=== PATIENT | male | born 1960 | race Caucasian/White ===

== ENCOUNTER 2024-10-05 10:39 | Inpatient (IN) | payer MEDICAID, SELFPAY ==
[~2024-10-05] VITALS: Ht 175.3 cm; Wt 63.0 kg
[2024-10-05] MEDS: ONDANSETRON 4MG 2ML VIAL IV ONE (11:44)
[2024-10-05] MEDS: MORPHINE 4 MG/ML 1ML VIAL IV PRN ×2 (11:44→14:15)
[2024-10-05 11:45] LABS: HEMATOCRIT 35.6 % (42.0-52.0); HEMOGLOBIN 12.2 g/dl (13.5-17.5); MEAN CORPUSCULAR HEMOGLOBIN 29.7 pg (27.0-33.0); MEAN CORPUSCULAR HGB CONC 34.3 g/dl (32.0-36.5); MEAN CORPUSCULAR VOLUME 86.6 fl (80.0-96.0); PLATELET COUNT, AUTOMATED 411 10^3/uL (150-450); RED BLOOD COUNT 4.11 10^6/uL (4.30-6.10); WHITE BLOOD COUNT 10.4 10^3/uL (4.0-10.0)
[2024-10-05 12:13] LABS: BLOOD UREA NITROGEN 15 MG/DL (9-23); CALCIUM LEVEL 9.7 MG/DL (8.3-10.6); CARBON DIOXIDE LEVEL 32 MMOL/L (20-31); CHLORIDE LEVEL 98 MMOL/L (98-107); GLOMERULAR FILTRATION RATE > 60.0 (>49); GLUCOSE, FASTING 233 MG/DL (74-106); POTASSIUM SERUM 4.3 MMOL/L (3.5-5.1); SODIUM LEVEL 136 MMOL/L (136-145)
[2024-10-05] MEDS ORDERED: MAALOX 30 ML SUSP *UDC PO PRN (13:50)
[2024-10-05] MEDS ORDERED: MOM 30ML SUSPENSION UDC PO PRN (13:50)
[2024-10-05] MEDS ORDERED: MORPHINE 2 MG/ML 1ML VIAL IV PRN (13:55)
[2024-10-05] MEDS ORDERED: HOME MED LIST COMPLETE! XX SCH (14:20)
[2024-10-05 14:46] LABS: HEMOGLOBIN A1c 7.2 % (4.0-6.0)
[2024-10-05 15:30] VITALS: BP 162/71; TEMP 98.6; O2SAT 99
[2024-10-05] MEDS: HYDROMORPHONE HCL 0.5 MG/ 0.5 ML SYRINGE IV PRN (16:46)
[2024-10-05 20:00] VITALS: BP 160/76; TEMP 98.1; O2SAT 97
[2024-10-06] VITALS (8 sets, daily range): BP systolic 131–160; BP diastolic 62–77; TEMP 97.5–98.1; O2SAT 93–97
[2024-10-06] MEDS ORDERED: DEXTROSE 50% 50ML SYRINGE IV PRN (07:10)
[2024-10-06] MEDS ORDERED: GLUCOSE 4 GM CHEW PO PRN (07:10)
[2024-10-06] MEDS ORDERED: GLUCAGON INJ 1MG VIAL SC PRN (07:10)
[2024-10-06 07:43] LABS: HEMATOCRIT 32.9 % (42.0-52.0); HEMOGLOBIN 11.3 g/dl (13.5-17.5); MEAN CORPUSCULAR HEMOGLOBIN 29.7 pg (27.0-33.0); MEAN CORPUSCULAR HGB CONC 34.3 g/dl (32.0-36.5); MEAN CORPUSCULAR VOLUME 86.6 fl (80.0-96.0); PLATELET COUNT, AUTOMATED 337 10^3/uL (150-450); WHITE BLOOD COUNT 8.4 10^3/uL (4.0-10.0)
[2024-10-06] MEDS ORDERED: ROCURONIUM BROMIDE 50MG/5ML VIAL As Ordered ONE (07:47)
[2024-10-06] MEDS ORDERED: propofoL 200 MG/20 ML VIAL As Ordered ONE (07:47)
[2024-10-06] MEDS ORDERED: LIDOCAINE 2% 100MG/5ML SDV (FOR ANES.) As Ordered ONE (07:49)
[2024-10-06 08:17] LABS: BLOOD UREA NITROGEN 14 MG/DL (9-23); CALCIUM LEVEL 9.4 MG/DL (8.3-10.6); CARBON DIOXIDE LEVEL 31 MMOL/L (20-31); CHLORIDE LEVEL 99 MMOL/L (98-107); CREATININE FOR GFR 0.66 MG/DL (0.70-1.30); GLOMERULAR FILTRATION RATE > 60.0 (>49); GLUCOSE, FASTING 156 MG/DL (74-106); POTASSIUM SERUM 4.5 MMOL/L (3.5-5.1); SODIUM LEVEL 136 MMOL/L (136-145)
[2024-10-06] MEDS ORDERED: fentaNYL 100 MCG/2 ML INJECTION IV PRN (08:25)
[2024-10-06] MEDS ORDERED: MEPERIDINE 25 MG/ML 1ML VIAL IV PRN (08:25)
[2024-10-06] MEDS ORDERED: METOCLOPRAMIDE INJ 10MG/2ML VIAL IV PRN (08:25)
[2024-10-06] MEDS ORDERED: HYDROMORPHONE HCL 0.5 MG/ 0.5 ML SYRINGE IV PRN (08:25)
[2024-10-06] MEDS: ALBUTEROL SULFATE 2.5MG/0.5ML INH NEB SOLN INH ONE (08:25)
[2024-10-06] MEDS ORDERED: oxyCODONE 5MG TAB PO PRN (08:25)
[2024-10-06] MEDS ORDERED: ONDANSETRON 4MG 2ML VIAL IV PRN (08:25)
[2024-10-06] MEDS: ROPIvacaine 0.5% 30ML VIAL PN ONE (08:52)
[2024-10-06] MEDS: LIDOCAINE 1% SDV 5ML VIAL PN ONE (08:52)
[2024-10-06] MEDS: fentaNYL 100 MCG/2 ML INJECTION IV PRN (08:52)
[2024-10-06] MEDS: MIDAZOLAM INJ 2MG/2ML VIAL IV PRN (08:52)
[2024-10-06 09:35] LABS: CHOLESTEROL LEVEL 205 MG/DL (<200); CHOLESTEROL RISK RATIO 3.28 (<5); HDL CHOLESTEROL 62.4 MG/DL (>40); LDL CHOLESTEROL 126.2 MG/DL (<100); NON-HDL-C 142.6 MG/DL; TRIGLYCERIDES LEVEL 82 MG/DL (<150)
[2024-10-06] MEDS: ceFAZolin 1GM VIAL As Ordered ONE (09:40)
[2024-10-06] MEDS ORDERED: ONDANSETRON 4MG 2ML VIAL As Ordered ONE (10:04)
[2024-10-06] MEDS ORDERED: KETOROLAC 60MG 2ML VIAL As Ordered ONE (10:46)
[2024-10-06] MEDS: INSULIN LISPRO (NovoLOG) PER UNIT SC SCH ×2 (17:28→20:52)
[2024-10-06] MEDS: ceFAZolin SOD 2 GM in IV 1 EA IV SCH (17:28)
[2024-10-06] MEDS: HumuLIN R (REGULAR) INSULIN (NovoLIN R) **100U/ML** PER UNIT IV STA (17:30)
[2024-10-06] MEDS ORDERED: ATORVASTATIN 20 MG TAB PO SCH (21:00)
[2024-10-07 00:12] VITALS: BP 152/81; TEMP 97.5; O2SAT 97
[2024-10-07 04:15] VITALS: BP 156/82; TEMP 97.5; O2SAT 95
[2024-10-07] MEDS: ACETAMINOPHEN 325 MG TAB PO PRN (05:33)
[2024-10-07 06:56] LABS: BASO % 0.1 % (0.0-1.0); EOS % 0.1 % (0.0-3.0); HEMOGLOBIN 10.3 g/dl (13.5-17.5); LYMPH # 0.9 10^3/uL (1.5-5.0); LYMPH % 6.7 % (24.0-44.0); MEAN CORPUSCULAR HEMOGLOBIN 29.6 pg (27.0-33.0); MEAN CORPUSCULAR HGB CONC 34.3 g/dl (32.0-36.5); MEAN CORPUSCULAR VOLUME 86.2 fl (80.0-96.0); NEUTROPHILS # 11.6 10^3/uL (1.5-8.5); NEUTROPHILS % 85.5 % (36.0-66.0); PLATELET COUNT, AUTOMATED 339 10^3/uL (150-450); RED BLOOD COUNT 3.48 10^6/uL (4.30-6.10); WHITE BLOOD COUNT 13.6 10^3/uL (4.0-10.0)
[2024-10-07 07:30] VITALS: BP 157/76; TEMP 97.7; O2SAT 99
[2024-10-07 07:34] LABS: ALBUMIN 2.7 G/DL (3.2-5.2); ALKALINE PHOSPHATASE 96 U/L (40-129); ALT/SGPT 11 U/L (7.0-40); AST/SGOT 11 U/L (<34); BILIRUBIN,TOTAL 0.4 MG/DL (0.3-1.2); BLOOD UREA NITROGEN 24 MG/DL (9-23); CALCIUM LEVEL 9.1 MG/DL (8.3-10.6); CARBON DIOXIDE LEVEL 30 MMOL/L (20-31); CHLORIDE LEVEL 102 MMOL/L (98-107); CREATININE FOR GFR 0.72 MG/DL (0.70-1.30); GLOMERULAR FILTRATION RATE > 60.0 (>49); GLUCOSE, FASTING 288 MG/DL (74-106); POTASSIUM SERUM 4.8 MMOL/L (3.5-5.1); SODIUM LEVEL 138 MMOL/L (136-145); TOTAL PROTEIN 6.2 G/DL (5.7-8.2)
[2024-10-07 08:33] VITALS: BP 157/76; TEMP 97.7; O2SAT 99
[2024-10-07] MEDS: amLODIPine 5 MG TAB PO SCH (09:22)
[2024-10-07] MEDS: PERCOCET 5MG/325MG TAB PO PRN (10:25)
[2024-10-07 12:00] VITALS: BP 149/61; TEMP 97.3; O2SAT 96
[2024-10-07] MEDS: metFORMIN (GLUCOPHAGE) 1000MG TABLET PO ONE (13:28)
[2024-10-07 19:26] VITALS: BP 149/62; TEMP 97.7; O2SAT 97
[2024-10-07] MEDS: PERCOCET 5MG/325MG TAB PO ONE (21:24)
[2024-10-07] MEDS: ATORVASTATIN 20 MG TAB PO SCH (21:25)
[2024-10-08 03:43] VITALS: BP 146/66; TEMP 97.5; O2SAT 97
[2024-10-08 07:30] LABS: BASO % 0.3 % (0.0-1.0); EOS # 0.2 10^3/uL (0.0-0.5); HEMATOCRIT 30.4 % (42.0-52.0); HEMOGLOBIN 10.1 g/dl (13.5-17.5); LYMPH # 1.5 10^3/uL (1.5-5.0); LYMPH % 17.2 % (24.0-44.0); MEAN CORPUSCULAR HGB CONC 33.2 g/dl (32.0-36.5); MEAN CORPUSCULAR VOLUME 87.4 fl (80.0-96.0); MONO # 0.6 10^3/uL (0.0-0.8); MONO % 7.1 % (2.0-8.0); NEUTROPHILS # 6.5 10^3/uL (1.5-8.5); NEUTROPHILS % 72.8 % (36.0-66.0); PLATELET COUNT, AUTOMATED 314 10^3/uL (150-450); RED BLOOD COUNT 3.48 10^6/uL (4.30-6.10)
[2024-10-08 07:59] LABS: BLOOD UREA NITROGEN 21 MG/DL (9-23); CALCIUM LEVEL 8.8 MG/DL (8.3-10.6); CARBON DIOXIDE LEVEL 32 MMOL/L (20-31); CHLORIDE LEVEL 101 MMOL/L (98-107); CREATININE FOR GFR 0.65 MG/DL (0.70-1.30); GLOMERULAR FILTRATION RATE > 60.0 (>49); GLUCOSE, FASTING 207 MG/DL (74-106); POTASSIUM SERUM 4.7 MMOL/L (3.5-5.1); SODIUM LEVEL 138 MMOL/L (136-145)
[2024-10-08] MEDS: metFORMIN (GLUCOPHAGE) 1000MG TABLET PO SCH (08:12)
[2024-10-08] MEDS ORDERED: ATOR1TAB21 PO ×2 (10:57→15:38)
[2024-10-08] MEDS ORDERED: GLUCMIS7 XX (10:57)
[2024-10-08] MEDS ORDERED: AMLO10TA PO (10:57)
[2024-10-08] MEDS ORDERED: METF10004 PO (10:57)
[2024-10-08] MEDS ORDERED: LANC1COM MC (10:57)
[2024-10-08] MEDS ORDERED: PERCOCET PO (10:57)
[2024-10-08] MEDS ORDERED: ASPI81CH33 PO (11:17)
[2024-10-08 12:00] VITALS: BP 158/72; TEMP 98.6; O2SAT 97
[2024-10-08] MEDS: PERCOCET 5MG/325MG TAB PO PRN (13:17)
[2024-10-08] MEDS ORDERED: CARE1KIT XX (15:38)
[2024-10-09 04:04] VITALS: BP 158/73; TEMP 98.1; O2SAT 95
[2024-10-09 08:05] VITALS: BP 153/77
== END 2024-10-09 09:30 | disposition home or self-care (01) | DRG 313 ==
LOC: M ED 10:39 → M ED INP 13:48 → M MS5PR 15:30
PROVIDERS: ADMIT Student in an Organized Health Care Education/Training Program; ATTEND Student in an Organized Health Care Education/Training Program
PROC: 0SSGXZZ Reposition Left Ankle Joint, External Approach (ICD-10-PCS; principal; 2024-10-05)
PROC: 0SSG04Z Reposition Left Ankle Joint with Internal Fixation Device, Open Approach (ICD-10-PCS; 2024-10-06)
DX: S82.852A Displaced trimalleolar fracture of left lower leg, initial encounter for closed fracture (principal); W00.0XXA Fall on same level due to ice and snow, initial encounter; Y92.9 Unspecified place or not applicable; E11.65 Type 2 diabetes mellitus with hyperglycemia; E78.5 Hyperlipidemia, unspecified; I10 Essential (primary) hypertension

== ENCOUNTER 2024-10-15 20:54 | Emergency (ER) | payer MEDICAID ==
[~2024-10-15] VITALS: Ht 175.3 cm; Wt 59.0 kg
[~2024-10-15 20:54] MED LIST: AMLO10TA PO; ASPI81CH33 PO; ATOR1TAB21 PO; CARE1KIT XX; GLUCMIS7 XX; LANC1COM MC; METF10004 PO; PERCOCET PO
[2024-10-15 21:52] LABS: BASO % 0.5 % (0.0-1.0); EOS # 0.3 10^3/uL (0.0-0.5); EOS % 3.4 % (0.0-3.0); HEMATOCRIT 31.5 % (42.0-52.0); HEMOGLOBIN 10.7 g/dl (13.5-17.5); LYMPH # 1.4 10^3/uL (1.5-5.0); LYMPH % 17.1 % (24.0-44.0); MEAN CORPUSCULAR HEMOGLOBIN 28.3 pg (27.0-33.0); MEAN CORPUSCULAR VOLUME 83.3 fl (80.0-96.0); MONO # 0.7 10^3/uL (0.0-0.8); MONO % 7.9 % (2.0-8.0); NEUTROPHILS # 5.9 10^3/uL (1.5-8.5); NEUTROPHILS % 70.7 % (36.0-66.0); PLATELET COUNT, AUTOMATED 422 10^3/uL (150-450); RED BLOOD COUNT 3.78 10^6/uL (4.30-6.10); WHITE BLOOD COUNT 8.3 10^3/uL (4.0-10.0)
[2024-10-15 22:17] LABS: LIPASE 68 U/L (12-53)
[2024-10-15 22:19] LABS: ALBUMIN 2.9 G/DL (3.2-5.2); ALKALINE PHOSPHATASE 131 U/L (40-129); ALT/SGPT 20 U/L (7.0-40); AST/SGOT 19 U/L (<34); BILIRUBIN,DIRECT 0.2 MG/DL (<0.4); BILIRUBIN,TOTAL 0.7 MG/DL (0.3-1.2); BLOOD UREA NITROGEN 23 MG/DL (9-23); CALCIUM LEVEL 9.1 MG/DL (8.3-10.6); CARBON DIOXIDE LEVEL 31 MMOL/L (20-31); CHLORIDE LEVEL 99 MMOL/L (98-107); CK-MB VALUE MASS < 1.0 NG/ML (<3.6); CREATININE FOR GFR 0.64 MG/DL (0.70-1.30); GLOMERULAR FILTRATION RATE > 60.0 (>49); GLUCOSE, FASTING 214 MG/DL (74-106); POTASSIUM SERUM 4.7 MMOL/L (3.5-5.1); SODIUM LEVEL 135 MMOL/L (136-145); TOTAL PROTEIN 7.3 G/DL (5.7-8.2)
[2024-10-15 22:20] LABS: CPK CREATINE PHOSPHOKINASE 68 U/L (46-171); MB/CK RELATIVE INDEX 1.47 (< OR =4)
[2024-10-15 23:03] VITALS: BP 159/76; TEMP 98; O2SAT 100
[2024-10-15] MEDS ORDERED: ISOVUE-370 76% 100ML VIAL As Ordered ONE (23:22)
[2024-10-16] MEDS: GLYCERIN ADULT SUPP PR ONE (00:13)
== END 2024-10-16 00:57 | disposition home or self-care (01) ==
LOC: M ED 20:54
DX: S22.31XA Fracture of one rib, right side, initial encounter for closed fracture (principal); K59.00 Constipation, unspecified; X58.XXXA Exposure to other specified factors, initial encounter; Y92.9 Unspecified place or not applicable; Y93.9 Activity, unspecified; Y99.9 Unspecified external cause status; E11.9 Type 2 diabetes mellitus without complications; Z79.899 Other long term (current) drug therapy
CPT/HCPCS: 71045; 71100; 71275; 74018; 80048; 80076; 82550; 82553; 83690; 84484; 85025; 93005; 93041; 94760; 99284; Q9967

== ENCOUNTER → 2024-10-21 | Outpatient (CLI) | payer MEDICAID | LOC: M SOG 07:56 | PROVIDERS: ATTEND Physician Assistant | DX: S82.852A Displaced trimalleolar fracture of left lower leg, initial encounter for closed fracture (principal); W18.30XA Fall on same level, unspecified, initial encounter; Y92.009 Unspecified place in unspecified non-institutional (private) residence as the place of occurrence of the external cause ==

== ENCOUNTER → 2024-11-06 | Outpatient (CLI) | payer MEDICAID | LOC: M SOG 10:00 | PROVIDERS: ATTEND Orthopaedic Surgery | DX: S82.852A Displaced trimalleolar fracture of left lower leg, initial encounter for closed fracture (principal); Y93.9 Activity, unspecified; Y92.9 Unspecified place or not applicable ==

== ENCOUNTER 2024-11-17 15:21 | Inpatient (IN) | payer MEDICAID ==
[~2024-11-17] VITALS: Ht 175.3 cm; Wt 62.2 kg
[2024-11-17] MEDS: KETOROLAC 30 MG/ML 1ML VIAL IV ONE ×2 (17:35→19:48)
[2024-11-17 17:41] LABS: BASO % 0.2 % (0.0-1.0); EOS # 0.2 10^3/uL (0.0-0.5); EOS % 1.6 % (0.0-3.0); HEMATOCRIT 36.2 % (42.0-52.0); HEMOGLOBIN 11.9 g/dl (13.5-17.5); LYMPH # 0.9 10^3/uL (1.5-5.0); LYMPH % 6.3 % (24.0-44.0); MEAN CORPUSCULAR HEMOGLOBIN 28.7 pg (27.0-33.0); MEAN CORPUSCULAR HGB CONC 32.9 g/dl (32.0-36.5); MEAN CORPUSCULAR VOLUME 87.2 fl (80.0-96.0); MONO # 0.7 10^3/uL (0.0-0.8); MONO % 5.1 % (2.0-8.0); NEUTROPHILS # 12.3 10^3/uL (1.5-8.5); NEUTROPHILS % 86.2 % (36.0-66.0); PLATELET COUNT, AUTOMATED 344 10^3/uL (150-450); RED BLOOD COUNT 4.15 10^6/uL (4.30-6.10); WHITE BLOOD COUNT 14.2 10^3/uL (4.0-10.0)
[2024-11-17 17:47] LABS: ERYTHROCYTE SEDIMENTATION RATE 54 mm/hr (0-20)
[2024-11-17] MEDS: NS (Normal Saline) 0.9% 1,000 ML IV ONE ×2 (18:00→19:52)
[2024-11-17] MEDS: ACETAMINOPHEN 325 MG TAB PO ONE (18:30)
[2024-11-17] MEDS: ceFAZolin SOD 2 GM in IV 1 EA IV ONE (18:30)
[2024-11-17] MEDS: ONDANSETRON 4MG 2ML VIAL IV ONE (19:48)
[2024-11-17] MEDS: MORPHINE 2 MG/ML 1ML VIAL IV PRN (19:53)
[2024-11-17] MEDS ORDERED: THERTAB52 PO (22:01)
[2024-11-17] MEDS ORDERED: METF-877 PO (22:01)
[2024-11-17] MEDS ORDERED: APAP325T4 PO (22:01)
[2024-11-17] MEDS ORDERED: HOME MED LIST COMPLETE! XX SCH (22:05)
[2024-11-17 23:10] LABS: CPK CREATINE PHOSPHOKINASE 65 U/L (46-171)
[2024-11-17 23:20] LABS: INR 1.09; PARTIAL THROMBOPLASTIN TIME 30.9 SECONDS (24.8-34.2); PROTHROMBIN TIME 14.5 SECONDS (12.5-14.5)
[2024-11-17 23:34] LABS: ALBUMIN 2.8 G/DL (3.2-5.2); ALKALINE PHOSPHATASE 97 U/L (40-129); ALT/SGPT 25 U/L (7.0-40); AST/SGOT 23 U/L (<34); BILIRUBIN,TOTAL 0.4 MG/DL (0.3-1.2); BLOOD UREA NITROGEN 17 MG/DL (9-23); CALCIUM LEVEL 7.6 MG/DL (8.3-10.6); CARBON DIOXIDE LEVEL 25 MMOL/L (20-31); CHLORIDE LEVEL 105 MMOL/L (98-107); CREATININE FOR GFR 0.63 MG/DL (0.70-1.30); GLOMERULAR FILTRATION RATE > 60.0 (>49); GLUCOSE, FASTING 235 MG/DL (74-106); POTASSIUM SERUM 4.3 MMOL/L (3.5-5.1); SODIUM LEVEL 139 MMOL/L (136-145); TOTAL PROTEIN 5.6 G/DL (5.7-8.2)
[2024-11-18 00:15] VITALS: BP 143/99; TEMP 98.1; O2SAT 99
[2024-11-18] MEDS: CEFTAROLINE FOSAMIL 600 MG in DEXTROSE 5% (D5W) ADV/MINI-BAG 50 ML IV SCH (01:43)
[2024-11-18 05:14] VITALS: BP 131/72; TEMP 99.2; O2SAT 97
[2024-11-18 07:10] LABS: BASO % 0.1 % (0.0-1.0); EOS % 0.1 % (0.0-3.0); HEMATOCRIT 29.1 % (42.0-52.0); LYMPH # 0.3 10^3/uL (1.5-5.0); LYMPH % 3.2 % (24.0-44.0); MEAN CORPUSCULAR HEMOGLOBIN 28.7 pg (27.0-33.0); MEAN CORPUSCULAR HGB CONC 33.3 g/dl (32.0-36.5); MEAN CORPUSCULAR VOLUME 86.1 fl (80.0-96.0); MONO # 0.4 10^3/uL (0.0-0.8); NEUTROPHILS # 8.5 10^3/uL (1.5-8.5); NEUTROPHILS % 91.8 % (36.0-66.0); RED BLOOD COUNT 3.38 10^6/uL (4.30-6.10); WHITE BLOOD COUNT 9.3 10^3/uL (4.0-10.0)
[2024-11-18 07:16] LABS: HEMOGLOBIN 9.7 g/dl (13.5-17.5); PLATELET COUNT, AUTOMATED 227 10^3/uL (150-450)
[2024-11-18 07:30] LABS: C REACTIVE PROTEIN QUANTITATIV 11.76 MG/DL (<1.0)
[2024-11-18 07:33] LABS: ALKALINE PHOSPHATASE 97 U/L (40-129); ALT/SGPT 23 U/L (7.0-40); AST/SGOT 22 U/L (<34); BILIRUBIN,TOTAL 0.5 MG/DL (0.3-1.2); BLOOD UREA NITROGEN 18 MG/DL (9-23); CALCIUM LEVEL 8.4 MG/DL (8.3-10.6); CARBON DIOXIDE LEVEL 27 MMOL/L (20-31); CHLORIDE LEVEL 105 MMOL/L (98-107); CREATININE FOR GFR 0.71 MG/DL (0.70-1.30); GLOMERULAR FILTRATION RATE > 60.0 (>49); GLUCOSE, FASTING 267 MG/DL (74-106); POTASSIUM SERUM 4.1 MMOL/L (3.5-5.1); SODIUM LEVEL 138 MMOL/L (136-145)
[2024-11-18] MEDS ORDERED: GLUCOSE 4 GM CHEW PO PRN (08:55)
[2024-11-18] MEDS ORDERED: GLUCAGON INJ 1MG VIAL SC PRN (08:55)
[2024-11-18] MEDS ORDERED: DEXTROSE 50% 50ML SYRINGE IV PRN (08:55)
[2024-11-18] MEDS: KETOROLAC 30 MG/ML 1ML VIAL IV PRN (08:57)
[2024-11-18] MEDS: ENOXAPARIN 40MG/0.4ML SYRINGE (J1650 PER 10MG) SC SCH (08:58)
[2024-11-18 09:15] VITALS: TEMP 100
[2024-11-18 12:00] VITALS: BP 117/50; TEMP 99.5; O2SAT 97
[2024-11-18] MEDS: INSULIN LISPRO (NovoLOG) PER UNIT SC SCH ×2 (13:17→20:34)
[2024-11-18 15:50] LABS: PROCALCITONIN 1.41 ng/ml
[2024-11-18] MEDS: ONDANSETRON 4MG ORAL DISINTEGRATING TAB PO PRN (18:07)
[2024-11-18] MEDS: ACETAMINOPHEN 325 MG TAB PO PRN (18:14)
[2024-11-18 20:13] VITALS: BP 131/67; TEMP 99.1; O2SAT 96
[2024-11-19 04:31] VITALS: BP 132/67; TEMP 101.5; O2SAT 96
[2024-11-19 07:21] LABS: BASO % 0.2 % (0.0-1.0); EOS % 0.1 % (0.0-3.0); HEMATOCRIT 28.4 % (42.0-52.0); HEMOGLOBIN 9.6 g/dl (13.5-17.5); LYMPH # 0.7 10^3/uL (1.5-5.0); MEAN CORPUSCULAR HEMOGLOBIN 28.7 pg (27.0-33.0); MEAN CORPUSCULAR HGB CONC 33.8 g/dl (32.0-36.5); MEAN CORPUSCULAR VOLUME 84.8 fl (80.0-96.0); MONO # 0.6 10^3/uL (0.0-0.8); MONO % 6.9 % (2.0-8.0); NEUTROPHILS # 6.8 10^3/uL (1.5-8.5); NEUTROPHILS % 83.1 % (36.0-66.0); PLATELET COUNT, AUTOMATED 188 10^3/uL (150-450); RED BLOOD COUNT 3.35 10^6/uL (4.30-6.10); WHITE BLOOD COUNT 8.2 10^3/uL (4.0-10.0)
[2024-11-19 07:50] LABS: C REACTIVE PROTEIN QUANTITATIV 22.86 MG/DL (<1.0)
[2024-11-19 07:52] LABS: ALBUMIN 2.6 G/DL (3.2-5.2); ALKALINE PHOSPHATASE 83 U/L (40-129); ALT/SGPT 18 U/L (7.0-40); AST/SGOT 22 U/L (<34); BILIRUBIN,TOTAL 0.5 MG/DL (0.3-1.2); BLOOD UREA NITROGEN 17 MG/DL (9-23); CALCIUM LEVEL 8.2 MG/DL (8.3-10.6); CARBON DIOXIDE LEVEL 30 MMOL/L (20-31); CHLORIDE LEVEL 103 MMOL/L (98-107); CREATININE FOR GFR 0.69 MG/DL (0.70-1.30); GLOMERULAR FILTRATION RATE > 60.0 (>49); GLUCOSE, FASTING 192 MG/DL (74-106); POTASSIUM SERUM 4.2 MMOL/L (3.5-5.1); SODIUM LEVEL 138 MMOL/L (136-145); TOTAL PROTEIN 5.6 G/DL (5.7-8.2)
[2024-11-19 12:00] VITALS: BP 154/74; TEMP 97.6; O2SAT 98
[2024-11-19] MEDS: KETOROLAC 30 MG/ML 1ML VIAL IV PRN (18:23)
[2024-11-19 19:52] VITALS: BP 148/74; TEMP 99.5; O2SAT 98
[2024-11-20] VITALS (9 sets, daily range): BP systolic 136–170; BP diastolic 71–88; TEMP 96.8–98.1; O2SAT 96–98
[2024-11-20 06:22] LABS: HEMATOCRIT 28.1 % (42.0-52.0); HEMOGLOBIN 9.3 g/dl (13.5-17.5); MEAN CORPUSCULAR HEMOGLOBIN 28.1 pg (27.0-33.0); MEAN CORPUSCULAR HGB CONC 33.1 g/dl (32.0-36.5); MEAN CORPUSCULAR VOLUME 84.9 fl (80.0-96.0); PLATELET COUNT, AUTOMATED 186 10^3/uL (150-450); RED BLOOD COUNT 3.31 10^6/uL (4.30-6.10)
[2024-11-20 06:50] LABS: C REACTIVE PROTEIN QUANTITATIV 13.74 MG/DL (<1.0)
[2024-11-20 06:51] LABS: ALBUMIN 2.6 G/DL (3.2-5.2); ALKALINE PHOSPHATASE 81 U/L (40-129); ALT/SGPT 17 U/L (7.0-40); AST/SGOT 20 U/L (<34); BILIRUBIN,TOTAL 0.5 MG/DL (0.3-1.2); BLOOD UREA NITROGEN 20 MG/DL (9-23); CALCIUM LEVEL 8.2 MG/DL (8.3-10.6); CARBON DIOXIDE LEVEL 29 MMOL/L (20-31); CHLORIDE LEVEL 101 MMOL/L (98-107); CREATININE FOR GFR 0.74 MG/DL (0.70-1.30); GLOMERULAR FILTRATION RATE > 60.0 (>49); GLUCOSE, FASTING 150 MG/DL (74-106); POTASSIUM SERUM 4.2 MMOL/L (3.5-5.1); SODIUM LEVEL 141 MMOL/L (136-145); TOTAL PROTEIN 5.7 G/DL (5.7-8.2)
[2024-11-20] MEDS ORDERED: LIDOCAINE 2% 100MG/5ML SDV (FOR ANES.) As Ordered ONE (11:49)
[2024-11-20] MEDS ORDERED: ACETAMINOPHEN 1000MG/100ML IV BAG As Ordered ONE (11:49)
[2024-11-20] MEDS ORDERED: fentaNYL 100 MCG/2 ML INJECTION As Ordered ONE (11:49)
[2024-11-20] MEDS ORDERED: MIDAZOLAM INJ 2MG/2ML VIAL As Ordered ONE (11:49)
[2024-11-20] MEDS ORDERED: propofoL 200 MG/20 ML VIAL As Ordered ONE (11:49)
[2024-11-20] MEDS: LIDOCAINE 1% SDV 30ML VIAL As Ordered ONE (14:11)
[2024-11-20] MEDS: ceFAZolin 2 GM/D5W 50 ML IV BAG As Ordered ONE (14:45)
[2024-11-20] MEDS ORDERED: KETOROLAC 60MG 2ML VIAL As Ordered ONE (14:48)
[2024-11-20] MEDS ORDERED: ePHEDrine SULFATE 25 MG/5 ML(5MG/ML) SYRINGE As Ordered ONE (14:58)
[2024-11-20] MEDS ORDERED: ONDANSETRON 4MG 2ML VIAL As Ordered ONE (15:16)
[2024-11-20] MEDS: VANCOMYCIN 1000MG/20ML VIAL As Ordered ONE (15:26)
[2024-11-20] MEDS ORDERED: fentaNYL 100 MCG/2 ML INJECTION IV PRN (15:45)
[2024-11-20] MEDS ORDERED: ONDANSETRON 4MG 2ML VIAL IV PRN (15:45)
[2024-11-20] MEDS: LR 1,000 ML IV SCH (18:24)
[2024-11-21 00:03] VITALS: BP 135/71; TEMP 96.9; O2SAT 96
[2024-11-21 03:54] VITALS: BP 142/69; TEMP 97.9; O2SAT 98
[2024-11-21 07:44] VITALS: BP 167/80; TEMP 97.4; O2SAT 95
[2024-11-21 12:00] VITALS: BP 167/80; TEMP 98.4; O2SAT 98
[2024-11-21 16:00] VITALS: BP 165/79; TEMP 98.4; O2SAT 95
[2024-11-21 18:27] LABS: BASO % 0.2 % (0.0-1.0); EOS # 0.2 10^3/uL (0.0-0.5); EOS % 4.3 % (0.0-3.0); HEMATOCRIT 25.5 % (42.0-52.0); HEMOGLOBIN 8.7 g/dl (13.5-17.5); LYMPH % 23.3 % (24.0-44.0); MEAN CORPUSCULAR HEMOGLOBIN 28.5 pg (27.0-33.0); MEAN CORPUSCULAR HGB CONC 34.1 g/dl (32.0-36.5); MEAN CORPUSCULAR VOLUME 83.6 fl (80.0-96.0); MONO # 0.2 10^3/uL (0.0-0.8); MONO % 5.8 % (2.0-8.0); NEUTROPHILS # 2.7 10^3/uL (1.5-8.5); NEUTROPHILS % 65.7 % (36.0-66.0); PLATELET COUNT, AUTOMATED 218 10^3/uL (150-450); RED BLOOD COUNT 3.05 10^6/uL (4.30-6.10); WHITE BLOOD COUNT 4.2 10^3/uL (4.0-10.0)
[2024-11-21 18:37] LABS: ERYTHROCYTE SEDIMENTATION RATE 59 mm/hr (0-20)
[2024-11-21 18:58] LABS: ALBUMIN 2.4 G/DL (3.2-5.2); ALKALINE PHOSPHATASE 92 U/L (40-129); ALT/SGPT 18 U/L (7.0-40); AST/SGOT 21 U/L (<34); BILIRUBIN,TOTAL 0.3 MG/DL (0.3-1.2); BLOOD UREA NITROGEN 17 MG/DL (9-23); CALCIUM LEVEL 8.1 MG/DL (8.3-10.6); CARBON DIOXIDE LEVEL 30 MMOL/L (20-31); CHLORIDE LEVEL 106 MMOL/L (98-107); CREATININE FOR GFR 0.65 MG/DL (0.70-1.30); GLOMERULAR FILTRATION RATE > 60.0 (>49); GLUCOSE, FASTING 144 MG/DL (74-106); POTASSIUM SERUM 4.4 MMOL/L (3.5-5.1); SODIUM LEVEL 141 MMOL/L (136-145); TOTAL PROTEIN 5.5 G/DL (5.7-8.2)
[2024-11-21 20:31] VITALS: BP 132/77; TEMP 98.1; O2SAT 95
[2024-11-21] MEDS: ceFAZolin SOD 2 GM in IV 1 EA IV SCH (20:39)
[2024-11-22 04:05] VITALS: BP 145/70; TEMP 97.7; O2SAT 98
[2024-11-22 06:06] LABS: BASO % 0.2 % (0.0-1.0); EOS # 0.2 10^3/uL (0.0-0.5); EOS % 4.6 % (0.0-3.0); HEMATOCRIT 24.1 % (42.0-52.0); HEMOGLOBIN 8.2 g/dl (13.5-17.5); LYMPH # 1.2 10^3/uL (1.5-5.0); LYMPH % 23.8 % (24.0-44.0); MEAN CORPUSCULAR HEMOGLOBIN 28.6 pg (27.0-33.0); MONO # 0.4 10^3/uL (0.0-0.8); MONO % 7.8 % (2.0-8.0); NEUTROPHILS # 3.2 10^3/uL (1.5-8.5); NEUTROPHILS % 63.2 % (36.0-66.0); PLATELET COUNT, AUTOMATED 222 10^3/uL (150-450); RED BLOOD COUNT 2.87 10^6/uL (4.30-6.10)
[2024-11-22] MEDS: ENOXAPARIN 40MG/0.4ML SYRINGE (J1650 PER 10MG) SC SCH (08:26)
[2024-11-22 11:30] VITALS: BP 163/78; TEMP 98.6; O2SAT 98
[2024-11-22 20:24] VITALS: BP 160/75; TEMP 98.8; O2SAT 98
[2024-11-23 04:37] VITALS: BP 167/78; TEMP 97.6; O2SAT 96
[2024-11-23 06:39] LABS: BASO % 0.4 % (0.0-1.0); EOS # 0.2 10^3/uL (0.0-0.5); EOS % 4.4 % (0.0-3.0); HEMATOCRIT 25.6 % (42.0-52.0); HEMOGLOBIN 8.6 g/dl (13.5-17.5); LYMPH # 1.4 10^3/uL (1.5-5.0); LYMPH % 28.7 % (24.0-44.0); MEAN CORPUSCULAR HEMOGLOBIN 28.2 pg (27.0-33.0); MEAN CORPUSCULAR HGB CONC 33.6 g/dl (32.0-36.5); MEAN CORPUSCULAR VOLUME 83.9 fl (80.0-96.0); MONO # 0.4 10^3/uL (0.0-0.8); MONO % 8.4 % (2.0-8.0); NEUTROPHILS # 2.9 10^3/uL (1.5-8.5); NEUTROPHILS % 57.1 % (36.0-66.0); PLATELET COUNT, AUTOMATED 234 10^3/uL (150-450); RED BLOOD COUNT 3.05 10^6/uL (4.30-6.10)
[2024-11-23 11:30] VITALS: BP 165/78; TEMP 98.1; O2SAT 96
[2024-11-23 16:55] VITALS: BP 168/78; TEMP 98.4; O2SAT 99
[2024-11-23 20:00] VITALS: BP 168/70; TEMP 98.1; O2SAT 97
[2024-11-23] MEDS: PERCOCET 5MG/325MG TAB PO PRN (21:44)
[2024-11-24 03:59] VITALS: BP 164/78; TEMP 97.2; O2SAT 97
[2024-11-24 06:04] LABS: BASO % 0.4 % (0.0-1.0); EOS # 0.3 10^3/uL (0.0-0.5); HEMOGLOBIN 8.6 g/dl (13.5-17.5); LYMPH # 1.6 10^3/uL (1.5-5.0); LYMPH % 30.4 % (24.0-44.0); MEAN CORPUSCULAR HEMOGLOBIN 28.1 pg (27.0-33.0); MEAN CORPUSCULAR HGB CONC 33.1 g/dl (32.0-36.5); MONO # 0.6 10^3/uL (0.0-0.8); MONO % 10.9 % (2.0-8.0); NEUTROPHILS # 2.8 10^3/uL (1.5-8.5); NEUTROPHILS % 51.1 % (36.0-66.0); PLATELET COUNT, AUTOMATED 253 10^3/uL (150-450); RED BLOOD COUNT 3.06 10^6/uL (4.30-6.10); WHITE BLOOD COUNT 5.4 10^3/uL (4.0-10.0)
[2024-11-24 12:00] VITALS: BP 158/71; TEMP 98.4; O2SAT 98
[2024-11-24 20:24] VITALS: BP 158/71; TEMP 98.1; O2SAT 98
[2024-11-25 04:44] VITALS: BP 164/77; TEMP 98.8; O2SAT 95
[2024-11-25 07:09] LABS: BASO % 0.6 % (0.0-1.0); EOS # 0.2 10^3/uL (0.0-0.5); EOS % 3.7 % (0.0-3.0); HEMATOCRIT 26.3 % (42.0-52.0); HEMOGLOBIN 8.8 g/dl (13.5-17.5); LYMPH # 1.4 10^3/uL (1.5-5.0); LYMPH % 26.4 % (24.0-44.0); MEAN CORPUSCULAR HEMOGLOBIN 28.1 pg (27.0-33.0); MEAN CORPUSCULAR HGB CONC 33.5 g/dl (32.0-36.5); MONO # 0.6 10^3/uL (0.0-0.8); MONO % 10.8 % (2.0-8.0); NEUTROPHILS % 56.6 % (36.0-66.0); PLATELET COUNT, AUTOMATED 312 10^3/uL (150-450); RED BLOOD COUNT 3.13 10^6/uL (4.30-6.10); WHITE BLOOD COUNT 5.4 10^3/uL (4.0-10.0)
[2024-11-25 12:00] VITALS: BP 173/80; TEMP 97.7; O2SAT 97
[2024-11-25 14:33] VITALS: BP 148/68
[2024-11-25 20:13] VITALS: BP 171/76; TEMP 97.9; O2SAT 98
[2024-11-26] VITALS (10 sets, daily range): BP systolic 151–171; BP diastolic 74–89; TEMP 97.3–98.4; O2SAT 95–98
[2024-11-26 06:26] LABS: BASO % 0.4 % (0.0-1.0); EOS # 0.2 10^3/uL (0.0-0.5); EOS % 2.8 % (0.0-3.0); HEMATOCRIT 26.5 % (42.0-52.0); HEMOGLOBIN 8.9 g/dl (13.5-17.5); LYMPH # 1.3 10^3/uL (1.5-5.0); LYMPH % 24.7 % (24.0-44.0); MEAN CORPUSCULAR HEMOGLOBIN 28.3 pg (27.0-33.0); MEAN CORPUSCULAR HGB CONC 33.6 g/dl (32.0-36.5); MEAN CORPUSCULAR VOLUME 84.1 fl (80.0-96.0); MONO # 0.6 10^3/uL (0.0-0.8); MONO % 10.9 % (2.0-8.0); NEUTROPHILS # 3.2 10^3/uL (1.5-8.5); NEUTROPHILS % 59.9 % (36.0-66.0); PLATELET COUNT, AUTOMATED 339 10^3/uL (150-450); RED BLOOD COUNT 3.15 10^6/uL (4.30-6.10); WHITE BLOOD COUNT 5.3 10^3/uL (4.0-10.0)
[2024-11-26] MEDS: LIDOCAINE 1% MDV 20ML VIAL As Ordered ONE (07:14)
[2024-11-26] MEDS ORDERED: fentaNYL 100 MCG/2 ML INJECTION IV PRN (09:15)
[2024-11-26] MEDS: INSULIN LISPRO (NovoLOG) PER UNIT SC PRN (09:30)
[2024-11-26] MEDS: ONDANSETRON 4MG 2ML VIAL IV PRN (09:32)
[2024-11-26] MEDS: oxyCODONE 5MG TAB PO PRN (09:33)
[2024-11-26] MEDS: MORPHINE 2 MG/ML 1ML VIAL IV PRN (09:33)
[2024-11-26] MEDS: HYDROMORPHONE HCL 0.5 MG/ 0.5 ML SYRINGE IV PRN (09:58)
[2024-11-26] MEDS: LEVEMIR (INSULIN DETEMIR) 1 UNITS/0.01ML SC SCH (20:43)
[2024-11-26] MEDS ORDERED: BACI1CAP PO (20:44)
[2024-11-26] MEDS: lisinopriL 5 MG TAB PO ONE (20:44)
[2024-11-26] MEDS ORDERED: TALK1KIT MC (20:44)
[2024-11-26] MEDS ORDERED: LISI5TAB11 PO (20:44)
[2024-11-26] MEDS ORDERED: CEFA500C2 PO (20:44)
[2024-11-26 21:21] LABS: HEMOGLOBIN A1c 6.8 % (4.0-6.0)
[2024-11-26] MEDS: PERCOCET 5MG/325MG TAB PO PRN (23:29)
[2024-11-27] VITALS: BP 150/74; TEMP 98; O2SAT 96
[2024-11-27 04:02] VITALS: BP 151/75; TEMP 98.2; O2SAT 96
[2024-11-27 05:23] LABS: BASO % 0.1 % (0.0-1.0); EOS % 0.1 % (0.0-3.0); HEMATOCRIT 26.7 % (42.0-52.0); LYMPH % 11.8 % (24.0-44.0); MEAN CORPUSCULAR HEMOGLOBIN 28.2 pg (27.0-33.0); MEAN CORPUSCULAR HGB CONC 33.7 g/dl (32.0-36.5); MEAN CORPUSCULAR VOLUME 83.7 fl (80.0-96.0); MONO # 0.5 10^3/uL (0.0-0.8); MONO % 6.1 % (2.0-8.0); NEUTROPHILS % 81.4 % (36.0-66.0); PLATELET COUNT, AUTOMATED 404 10^3/uL (150-450); RED BLOOD COUNT 3.19 10^6/uL (4.30-6.10); WHITE BLOOD COUNT 8.6 10^3/uL (4.0-10.0)
[2024-11-27 05:51] LABS: BLOOD UREA NITROGEN 15 MG/DL (9-23); C REACTIVE PROTEIN QUANTITATIV 3.47 MG/DL (<1.0); CALCIUM LEVEL 8.4 MG/DL (8.3-10.6); CARBON DIOXIDE LEVEL 30 MMOL/L (20-31); CHLORIDE LEVEL 97 MMOL/L (98-107); CREATININE FOR GFR 0.61 MG/DL (0.70-1.30); GLOMERULAR FILTRATION RATE > 60.0 (>49); GLUCOSE, FASTING 293 MG/DL (74-106); SODIUM LEVEL 135 MMOL/L (136-145)
[2024-11-27 07:42] VITALS: BP 155/74
[2024-11-27] MEDS: lisinopriL 5 MG TAB PO SCH (07:42)
[2024-11-27] MEDS ORDERED: ECOT81TA5 PO (08:26)
[2024-11-27] MEDS ORDERED: OXYC1TAB23 PO (09:12)
== END 2024-11-27 13:13 | disposition home health service (06) | DRG 313 ==
LOC: M ED 15:21 → M ED INP 22:20 → M MSPAV 11-18 00:08
PROVIDERS: ADMIT Student in an Organized Health Care Education/Training Program; ATTEND General Practice
PROC: 0QBK0ZZ Excision of Left Fibula, Open Approach (ICD-10-PCS; principal; 2024-11-20 13:00)
PROC: 0QPK04Z Removal of Internal Fixation Device from Left Fibula, Open Approach (ICD-10-PCS; 2024-11-20 13:00)
PROC: 3E1U38Z Irrigation of Joints using Irrigating Substance, Percutaneous Approach (ICD-10-PCS; 2024-11-26)
DX: T84.625A Infection and inflammatory reaction due to internal fixation device of left fibula, initial encounter (principal); A40.9 Streptococcal sepsis, unspecified; T81.31XA Disruption of external operation (surgical) wound, not elsewhere classified, initial encounter; M86.172 Other acute osteomyelitis, left ankle and foot; E11.69 Type 2 diabetes mellitus with other specified complication; I10 Essential (primary) hypertension; D64.9 Anemia, unspecified; Y83.1 Surgical operation with implant of artificial internal device as the cause of abnormal reaction of the patient, or of later complication, without mention of misadventure at the time of the procedure; Z79.84 Long term (current) use of oral hypoglycemic drugs; Z88.8 Allergy status to other drugs, medicaments and biological substances; I16.0 Hypertensive urgency; B95.61 Methicillin susceptible Staphylococcus aureus infection as the cause of diseases classified elsewhere

== ENCOUNTER → 2024-12-03 | Outpatient (REF) | payer OTHER ==
[~2024-12-03] MED LIST changes: +APAP325T4 PO; +BACI1CAP PO; +CEFA500C2 PO; +ECOT81TA5 PO; +LISI5TAB11 PO; +METF-877 PO; +OXYC1TAB23 PO; +TALK1KIT MC; +THERTAB52 PO
[2024-12-03 17:34] LABS: BASO # 0.1 10^3/uL (0.0-0.2); BASO % 0.8 % (0.0-1.0); EOS # 0.2 10^3/uL (0.0-0.5); EOS % 2.3 % (0.0-3.0); HEMATOCRIT 31.6 % (42.0-52.0); HEMOGLOBIN 10.3 g/dl (13.5-17.5); LYMPH # 1.6 10^3/uL (1.5-5.0); LYMPH % 21.1 % (24.0-44.0); MEAN CORPUSCULAR HEMOGLOBIN 27.8 pg (27.0-33.0); MEAN CORPUSCULAR HGB CONC 32.6 g/dl (32.0-36.5); MEAN CORPUSCULAR VOLUME 85.4 fl (80.0-96.0); MONO # 0.6 10^3/uL (0.0-0.8); MONO % 8.1 % (2.0-8.0); NEUTROPHILS % 67.3 % (36.0-66.0); PLATELET COUNT, AUTOMATED 457 10^3/uL (150-450); WHITE BLOOD COUNT 7.4 10^3/uL (4.0-10.0)
[2024-12-03 17:43] LABS: ERYTHROCYTE SEDIMENTATION RATE > 130 mm/hr (0-20)
== END ==
LOC: M LAB REF 16:32
PROVIDERS: ATTEND Student in an Organized Health Care Education/Training Program
DX: Z11.9 Encounter for screening for infectious and parasitic diseases, unspecified (principal)

== ENCOUNTER → 2024-12-04 | Outpatient (CLI) | payer OTHER | LOC: M SOG 10:32 | PROVIDERS: ATTEND Orthopaedic Surgery | DX: S82.852A Displaced trimalleolar fracture of left lower leg, initial encounter for closed fracture (principal); Y92.9 Unspecified place or not applicable; Y93.9 Activity, unspecified; Y99.9 Unspecified external cause status ==

== ENCOUNTER → 2024-12-09 | Outpatient (REF) | payer OTHER ==
[2024-12-09 16:47] LABS: BASO % 0.6 % (0.0-1.0); EOS # 0.1 10^3/uL (0.0-0.5); EOS % 2.2 % (0.0-3.0); HEMATOCRIT 32.8 % (42.0-52.0); HEMOGLOBIN 10.7 g/dl (13.5-17.5); LYMPH # 1.4 10^3/uL (1.5-5.0); LYMPH % 21.6 % (24.0-44.0); MEAN CORPUSCULAR HEMOGLOBIN 27.6 pg (27.0-33.0); MEAN CORPUSCULAR HGB CONC 32.6 g/dl (32.0-36.5); MEAN CORPUSCULAR VOLUME 84.5 fl (80.0-96.0); MONO # 0.4 10^3/uL (0.0-0.8); MONO % 6.3 % (2.0-8.0); NEUTROPHILS # 4.4 10^3/uL (1.5-8.5); PLATELET COUNT, AUTOMATED 408 10^3/uL (150-450); RED BLOOD COUNT 3.88 10^6/uL (4.30-6.10); WHITE BLOOD COUNT 6.4 10^3/uL (4.0-10.0)
[2024-12-09 16:56] LABS: ERYTHROCYTE SEDIMENTATION RATE 89 mm/hr (0-20)
== END ==
LOC: M LAB REF 16:11
PROVIDERS: ATTEND Student in an Organized Health Care Education/Training Program
DX: M86.9 Osteomyelitis, unspecified (principal)

== ENCOUNTER 2024-12-15 16:22 | Inpatient (IN) | payer OTHER ==
[~2024-12-15] VITALS: Ht 175.3 cm; Wt 66.7 kg
[2024-12-15 17:31] LABS: BASO # 0.1 10^3/uL (0.0-0.2); BASO % 0.7 % (0.0-1.0); EOS # 0.5 10^3/uL (0.0-0.5); EOS % 6.1 % (0.0-3.0); HEMATOCRIT 30.8 % (42.0-52.0); HEMOGLOBIN 10.1 g/dl (13.5-17.5); LYMPH # 1.7 10^3/uL (1.5-5.0); LYMPH % 22.5 % (24.0-44.0); MEAN CORPUSCULAR HEMOGLOBIN 27.7 pg (27.0-33.0); MEAN CORPUSCULAR HGB CONC 32.8 g/dl (32.0-36.5); MEAN CORPUSCULAR VOLUME 84.6 fl (80.0-96.0); MONO # 0.5 10^3/uL (0.0-0.8); NEUTROPHILS # 4.9 10^3/uL (1.5-8.5); NEUTROPHILS % 64.3 % (36.0-66.0); PLATELET COUNT, AUTOMATED 365 10^3/uL (150-450); RED BLOOD COUNT 3.64 10^6/uL (4.30-6.10); WHITE BLOOD COUNT 7.7 10^3/uL (4.0-10.0)
[2024-12-15 17:40] LABS: ERYTHROCYTE SEDIMENTATION RATE 79 mm/hr (0-20)
[2024-12-15 17:58] LABS: BLOOD UREA NITROGEN 11 MG/DL (9-23); C REACTIVE PROTEIN QUANTITATIV 2.52 MG/DL (<1.0); CALCIUM LEVEL 8.5 MG/DL (8.3-10.6); CARBON DIOXIDE LEVEL 28 MMOL/L (20-31); CHLORIDE LEVEL 102 MMOL/L (98-107); CREATININE FOR GFR 0.59 MG/DL (0.70-1.30); GLOMERULAR FILTRATION RATE > 60.0 (>49); GLUCOSE, FASTING 229 MG/DL (74-106); POTASSIUM SERUM 4.1 MMOL/L (3.5-5.1); SODIUM LEVEL 137 MMOL/L (136-145)
[2024-12-15] MEDS ORDERED: FLUID PLACE HOLDER IV ONE (22:40)
[2024-12-15] MEDS ORDERED: VANCOMYCIN HCL IV ONE (22:40)
[2024-12-15] MEDS: KETOROLAC 30 MG/ML 1ML VIAL IV ONE (22:52)
[2024-12-15] MEDS: cefTRIAXone SOD 2 GM in DEXTROSE 5% (D5W) ADV/MINI-BAG 50 ML IV ONE (23:26)
[2024-12-15 23:39] LABS: INR 1.06; PARTIAL THROMBOPLASTIN TIME 32.5 SECONDS (24.8-34.2); PROTHROMBIN TIME 14.1 SECONDS (12.5-14.5)
[2024-12-15] MEDS ORDERED: ACETAMINOPHEN 325 MG TAB PO PRN (23:50)
[2024-12-15] MEDS ORDERED: MOM 30ML SUSPENSION UDC PO PRN (23:50)
[2024-12-16] MEDS ORDERED: ASPI-531 PO (00:04)
[2024-12-16] MEDS ORDERED: ONDA-282 SL (00:07)
[2024-12-16] MEDS ORDERED: HOME MED LIST COMPLETE! XX SCH (00:10)
[2024-12-16] MEDS: VANCOMYCIN HCL 1,500 MG, VIAL MATE ADAPTER 1 EACH in NS 500 ML IV ONE (00:37)
[2024-12-16] MEDS ORDERED: GLUCOSE 4 GM CHEW PO PRN (01:05)
[2024-12-16] MEDS ORDERED: GLUCAGON INJ 1MG VIAL SC PRN (01:05)
[2024-12-16] MEDS ORDERED: DEXTROSE 50% 50ML SYRINGE IV PRN (01:05)
[2024-12-16] MEDS: INSULIN LISPRO (NovoLOG) PER UNIT SC SCH (01:34)
[2024-12-16] MEDS: NS (Normal Saline) 0.9% 1,000 ML IV SCH (02:54)
[2024-12-16] MEDS: MORPHINE 4 MG/ML 1ML VIAL IV PRN (03:01)
[2024-12-16] MEDS ORDERED: KETOROLAC 30 MG/ML 1ML VIAL IV PRN (05:00)
[2024-12-16] MEDS: CEFEPIME HCL 2 GM in DEXTROSE 5% (D5W) ADV/MINI-BAG 50 ML IV SCH (06:18)
[2024-12-16 07:16] LABS: BASO % 0.4 % (0.0-1.0); EOS # 0.4 10^3/uL (0.0-0.5); EOS % 7.8 % (0.0-3.0); HEMATOCRIT 27.7 % (42.0-52.0); LYMPH # 1.5 10^3/uL (1.5-5.0); LYMPH % 32.4 % (24.0-44.0); MEAN CORPUSCULAR HGB CONC 32.5 g/dl (32.0-36.5); MONO # 0.3 10^3/uL (0.0-0.8); MONO % 7.2 % (2.0-8.0); NEUTROPHILS # 2.3 10^3/uL (1.5-8.5); PLATELET COUNT, AUTOMATED 280 10^3/uL (150-450); RED BLOOD COUNT 3.22 10^6/uL (4.30-6.10); WHITE BLOOD COUNT 4.5 10^3/uL (4.0-10.0)
[2024-12-16 07:53] LABS: C REACTIVE PROTEIN QUANTITATIV 2.24 MG/DL (<1.0)
[2024-12-16 08:07] LABS: PROCALCITONIN 0.06 ng/ml
[2024-12-16 08:12] LABS: ALBUMIN 2.7 G/DL (3.2-5.2); ALKALINE PHOSPHATASE 117 U/L (40-129); ALT/SGPT 9 U/L (7.0-40); AST/SGOT 12 U/L (<34); BILIRUBIN,TOTAL 0.2 MG/DL (0.3-1.2); BLOOD UREA NITROGEN 10 MG/DL (9-23); CALCIUM LEVEL 8.2 MG/DL (8.3-10.6); CARBON DIOXIDE LEVEL 30 MMOL/L (20-31); CHLORIDE LEVEL 104 MMOL/L (98-107); CREATININE FOR GFR 0.64 MG/DL (0.70-1.30); GLOMERULAR FILTRATION RATE > 60.0 (>49); GLUCOSE, FASTING 178 MG/DL (74-106); MAGNESIUM LEVEL 1.6 MG/DL (1.8-2.4); POTASSIUM SERUM 4.4 MMOL/L (3.5-5.1); SODIUM LEVEL 140 MMOL/L (136-145); TOTAL PROTEIN 6.3 G/DL (5.7-8.2)
[2024-12-16] MEDS ORDERED: VANCOMYCIN HCL 1,000 MG, VIAL MATE ADAPTER 1 EACH in NS 250 ML IV SCH (09:00)
[2024-12-16] MEDS: MULTIVITAMINS/MINERALS THERAP 1 TAB PO SCH (09:00)
[2024-12-16] MEDS ORDERED: ASPIRIN 81MG ENTERIC TABLET PO SCH (09:00)
[2024-12-16] MEDS: MAG SULF 1GM/100ML (MAG RUN) 1 GM in IV 1 EA IV SCH (10:26)
[2024-12-16 12:15] VITALS: BP 177/86; TEMP 97.3; O2SAT 98
[2024-12-16 14:47] LABS: VANCOMYCIN RANDOM 15.9 UG/ML
[2024-12-16] MEDS: VANCOMYCIN HCL 1,000 MG, VIAL MATE ADAPTER 1 EACH in NS 250 ML IV ONE (14:47)
[2024-12-16] MEDS ORDERED: ISOVUE-370 76% 100ML VIAL As Ordered ONE (17:22)
[2024-12-16 20:00] VITALS: BP 172/78; TEMP 98.6; O2SAT 98
[2024-12-16] MEDS: lisinopriL 5 MG TAB PO SCH (20:12)
[2024-12-16] MEDS: VANCOMYCIN HCL 750 MG, VIAL MATE ADAPTER 1 EACH in NS 250 ML IV SCH (20:12)
[2024-12-16 22:29] VITALS: BP 175/87
[2024-12-17] VITALS: BP 147/77
[2024-12-17] MEDS: CYCLOBENZAPRINE 5MG TABLET PO ONE (01:05)
[2024-12-17 03:37] VITALS: BP 144/76; TEMP 98.6; O2SAT 97
[2024-12-17 05:25] LABS: BASO % 0.6 % (0.0-1.0); EOS # 0.4 10^3/uL (0.0-0.5); EOS % 7.4 % (0.0-3.0); HEMATOCRIT 26.8 % (42.0-52.0); HEMOGLOBIN 8.6 g/dl (13.5-17.5); LYMPH # 1.5 10^3/uL (1.5-5.0); LYMPH % 28.8 % (24.0-44.0); MEAN CORPUSCULAR HEMOGLOBIN 27.6 pg (27.0-33.0); MEAN CORPUSCULAR HGB CONC 32.1 g/dl (32.0-36.5); MEAN CORPUSCULAR VOLUME 85.9 fl (80.0-96.0); MONO # 0.4 10^3/uL (0.0-0.8); NEUTROPHILS # 2.9 10^3/uL (1.5-8.5); PLATELET COUNT, AUTOMATED 257 10^3/uL (150-450); RED BLOOD COUNT 3.12 10^6/uL (4.30-6.10); WHITE BLOOD COUNT 5.3 10^3/uL (4.0-10.0)
[2024-12-17 05:49] LABS: BLOOD UREA NITROGEN 10 MG/DL (9-23); C REACTIVE PROTEIN QUANTITATIV 1.65 MG/DL (<1.0); CALCIUM LEVEL 8.1 MG/DL (8.3-10.6); CARBON DIOXIDE LEVEL 30 MMOL/L (20-31); CHLORIDE LEVEL 107 MMOL/L (98-107); CREATININE FOR GFR 0.69 MG/DL (0.70-1.30); GLOMERULAR FILTRATION RATE > 60.0 (>49); GLUCOSE, FASTING 151 MG/DL (74-106); MAGNESIUM LEVEL 1.9 MG/DL (1.8-2.4); POTASSIUM SERUM 4.4 MMOL/L (3.5-5.1); SODIUM LEVEL 143 MMOL/L (136-145)
[2024-12-17] MEDS: ENOXAPARIN 40MG/0.4ML SYRINGE (J1650 PER 10MG) SC SCH (10:00)
[2024-12-17] MEDS ORDERED: GLUCOSE 4 GM CHEW PO PRN (10:35)
[2024-12-17] MEDS ORDERED: GLUCAGON INJ 1MG VIAL SC PRN (10:35)
[2024-12-17] MEDS ORDERED: DEXTROSE 50% 50ML SYRINGE IV PRN (10:35)
[2024-12-17 12:00] VITALS: BP 165/81; TEMP 98.1; O2SAT 99
[2024-12-17] MEDS: INSULIN LISPRO (NovoLOG) PER UNIT SC SCH ×2 (12:56→20:19)
[2024-12-17] MEDS: CEFEPIME HCL 2 GM in DEXTROSE 5% (D5W) ADV/MINI-BAG 50 ML IV SCH (14:20)
[2024-12-17 20:07] VITALS: BP 182/80; TEMP 98.1; O2SAT 98
[2024-12-17 21:47] VITALS: BP 164/83
[2024-12-17] MEDS: ceFAZolin SOD 2 GM in IV 1 EA IV SCH (21:54)
[2024-12-18 03:31] VITALS: BP 184/91; TEMP 98.6; O2SAT 98
[2024-12-18 05:05] VITALS: BP 148/68
[2024-12-18 05:59] LABS: BASO % 0.6 % (0.0-1.0); EOS # 0.4 10^3/uL (0.0-0.5); EOS % 7.4 % (0.0-3.0); HEMATOCRIT 26.9 % (42.0-52.0); HEMOGLOBIN 8.8 g/dl (13.5-17.5); LYMPH # 1.2 10^3/uL (1.5-5.0); LYMPH % 23.5 % (24.0-44.0); MEAN CORPUSCULAR HEMOGLOBIN 27.5 pg (27.0-33.0); MEAN CORPUSCULAR HGB CONC 32.7 g/dl (32.0-36.5); MEAN CORPUSCULAR VOLUME 84.1 fl (80.0-96.0); MONO # 0.4 10^3/uL (0.0-0.8); MONO % 7.4 % (2.0-8.0); NEUTROPHILS # 3.2 10^3/uL (1.5-8.5); NEUTROPHILS % 60.7 % (36.0-66.0); PLATELET COUNT, AUTOMATED 262 10^3/uL (150-450); WHITE BLOOD COUNT 5.3 10^3/uL (4.0-10.0)
[2024-12-18 06:22] LABS: BLOOD UREA NITROGEN 9 MG/DL (9-23); C REACTIVE PROTEIN QUANTITATIV 1.21 MG/DL (<1.0); CALCIUM LEVEL 8.1 MG/DL (8.3-10.6); CARBON DIOXIDE LEVEL 29 MMOL/L (20-31); CHLORIDE LEVEL 105 MMOL/L (98-107); CREATININE FOR GFR 0.66 MG/DL (0.70-1.30); GLOMERULAR FILTRATION RATE > 60.0 (>49); GLUCOSE, FASTING 185 MG/DL (74-106); MAGNESIUM LEVEL 1.7 MG/DL (1.8-2.4); POTASSIUM SERUM 4.6 MMOL/L (3.5-5.1); SODIUM LEVEL 141 MMOL/L (136-145)
[2024-12-18] MEDS: MAG SULF 1GM/100ML (MAG RUN) 1 GM in IV 1 EA IV ONE (07:41)
[2024-12-18] MEDS: MAGNESIUM OXIDE 400MG TAB (MAG-OX) PO SCH (10:07)
[2024-12-18 12:15] VITALS: BP 148/78; TEMP 98.6; O2SAT 97
[2024-12-18 20:00] VITALS: BP 169/80; TEMP 98.6; O2SAT 96
[2024-12-19 04:00] VITALS: BP 150/68; TEMP 98.8; O2SAT 96
[2024-12-19 05:00] LABS: BASO % 0.5 % (0.0-1.0); EOS # 0.4 10^3/uL (0.0-0.5); EOS % 6.1 % (0.0-3.0); HEMATOCRIT 28.7 % (42.0-52.0); HEMOGLOBIN 9.4 g/dl (13.5-17.5); LYMPH # 1.5 10^3/uL (1.5-5.0); LYMPH % 25.2 % (24.0-44.0); MEAN CORPUSCULAR HEMOGLOBIN 27.3 pg (27.0-33.0); MEAN CORPUSCULAR HGB CONC 32.8 g/dl (32.0-36.5); MEAN CORPUSCULAR VOLUME 83.4 fl (80.0-96.0); MONO # 0.4 10^3/uL (0.0-0.8); MONO % 7.7 % (2.0-8.0); NEUTROPHILS # 3.5 10^3/uL (1.5-8.5); NEUTROPHILS % 60.2 % (36.0-66.0); PLATELET COUNT, AUTOMATED 277 10^3/uL (150-450); RED BLOOD COUNT 3.44 10^6/uL (4.30-6.10); WHITE BLOOD COUNT 5.8 10^3/uL (4.0-10.0)
[2024-12-19 05:35] LABS: BLOOD UREA NITROGEN 10 MG/DL (9-23); C REACTIVE PROTEIN QUANTITATIV 0.95 MG/DL (<1.0); CALCIUM LEVEL 8.3 MG/DL (8.3-10.6); CARBON DIOXIDE LEVEL 31 MMOL/L (20-31); CHLORIDE LEVEL 100 MMOL/L (98-107); CREATININE FOR GFR 0.61 MG/DL (0.70-1.30); GLOMERULAR FILTRATION RATE > 60.0 (>49); GLUCOSE, FASTING 169 MG/DL (74-106); MAGNESIUM LEVEL 1.8 MG/DL (1.8-2.4); POTASSIUM SERUM 4.6 MMOL/L (3.5-5.1); SODIUM LEVEL 136 MMOL/L (136-145)
[2024-12-19 12:00] VITALS: BP 164/79; TEMP 98.1; O2SAT 98
[2024-12-19 20:50] VITALS: BP 163/80; TEMP 98.2; O2SAT 96
[2024-12-19] MEDS: ceFAZolin SODIUM 2 GM in DEXTROSE 5% (D5W) ADV/MINI-BAG 50 ML IV SCH (22:08)
[2024-12-20] VITALS (8 sets, daily range): BP systolic 122–165; BP diastolic 67–81; TEMP 97.5–98.1; O2SAT 95–98
[2024-12-20 07:04] LABS: BASO % 0.6 % (0.0-1.0); EOS # 0.3 10^3/uL (0.0-0.5); EOS % 7.1 % (0.0-3.0); HEMATOCRIT 31.7 % (42.0-52.0); HEMOGLOBIN 10.7 g/dl (13.5-17.5); LYMPH # 1.2 10^3/uL (1.5-5.0); MEAN CORPUSCULAR HEMOGLOBIN 28.1 pg (27.0-33.0); MEAN CORPUSCULAR HGB CONC 33.8 g/dl (32.0-36.5); MEAN CORPUSCULAR VOLUME 83.2 fl (80.0-96.0); MONO # 0.4 10^3/uL (0.0-0.8); MONO % 7.7 % (2.0-8.0); NEUTROPHILS # 2.9 10^3/uL (1.5-8.5); NEUTROPHILS % 59.4 % (36.0-66.0); PLATELET COUNT, AUTOMATED 303 10^3/uL (150-450); RED BLOOD COUNT 3.81 10^6/uL (4.30-6.10); WHITE BLOOD COUNT 4.8 10^3/uL (4.0-10.0)
[2024-12-20 07:30] LABS: BLOOD UREA NITROGEN 12 MG/DL (9-23); C REACTIVE PROTEIN QUANTITATIV 0.86 MG/DL (<1.0); CALCIUM LEVEL 8.8 MG/DL (8.3-10.6); CARBON DIOXIDE LEVEL 32 MMOL/L (20-31); CHLORIDE LEVEL 99 MMOL/L (98-107); CREATININE FOR GFR 0.59 MG/DL (0.70-1.30); GLOMERULAR FILTRATION RATE > 60.0 (>49); GLUCOSE, FASTING 168 MG/DL (74-106); MAGNESIUM LEVEL 1.9 MG/DL (1.8-2.4); POTASSIUM SERUM 4.6 MMOL/L (3.5-5.1); SODIUM LEVEL 137 MMOL/L (136-145)
[2024-12-20] MEDS ORDERED: ONDANSETRON 4MG 2ML VIAL As Ordered ONE (07:47)
[2024-12-20] MEDS ORDERED: LIDOCAINE 2% 100MG/5ML SDV (FOR ANES.) As Ordered ONE (07:47)
[2024-12-20] MEDS ORDERED: propofoL 200 MG/20 ML VIAL As Ordered ONE (07:47)
[2024-12-20] MEDS ORDERED: KETOROLAC 60MG 2ML VIAL As Ordered ONE (07:47)
[2024-12-20] MEDS ORDERED: fentaNYL 100 MCG/2 ML INJECTION As Ordered ONE (07:51)
[2024-12-20] MEDS ORDERED: MIDAZOLAM INJ 2MG/2ML VIAL As Ordered ONE (07:51)
[2024-12-20] MEDS: ceFAZolin 2 GM/D5W 50 ML IV BAG As Ordered ONE (10:42)
[2024-12-20] MEDS ORDERED: ePHEDrine SULFATE 25 MG/5 ML(5MG/ML) SYRINGE As Ordered ONE (10:49)
[2024-12-20] MEDS ORDERED: ACETAMINOPHEN 1000MG/100ML IV BAG As Ordered ONE (10:52)
[2024-12-20] MEDS: BACITRACIN OINTMENT 30GM TUBE As Ordered ONE (11:20)
[2024-12-20] MEDS ORDERED: ONDANSETRON 4MG 2ML VIAL IV PRN (12:10)
[2024-12-20] MEDS ORDERED: MORPHINE 2 MG/ML 1ML VIAL IV PRN (12:10)
[2024-12-20] MEDS ORDERED: fentaNYL 100 MCG/2 ML INJECTION IV PRN (12:10)
[2024-12-20] MEDS ORDERED: oxyCODONE 5MG TAB PO PRN (12:10)
[2024-12-20] MEDS: MORPHINE 4 MG/ML 1ML VIAL IV PRN (23:15)
[2024-12-21] MEDS: PERCOCET 5MG/325MG TAB PO PRN (00:36)
[2024-12-21 01:58] VITALS: BP 121/58; TEMP 98.1; O2SAT 97
[2024-12-21 05:31] VITALS: BP 154/85; TEMP 98.1; O2SAT 97
[2024-12-21 06:03] LABS: BASO % 0.1 % (0.0-1.0); HEMATOCRIT 29.8 % (42.0-52.0); HEMOGLOBIN 9.8 g/dl (13.5-17.5); LYMPH # 0.8 10^3/uL (1.5-5.0); LYMPH % 9.8 % (24.0-44.0); MEAN CORPUSCULAR HEMOGLOBIN 27.8 pg (27.0-33.0); MEAN CORPUSCULAR HGB CONC 32.9 g/dl (32.0-36.5); MEAN CORPUSCULAR VOLUME 84.7 fl (80.0-96.0); MONO # 0.5 10^3/uL (0.0-0.8); MONO % 5.5 % (2.0-8.0); NEUTROPHILS # 7.2 10^3/uL (1.5-8.5); NEUTROPHILS % 84.1 % (36.0-66.0); PLATELET COUNT, AUTOMATED 304 10^3/uL (150-450); RED BLOOD COUNT 3.52 10^6/uL (4.30-6.10); WHITE BLOOD COUNT 8.6 10^3/uL (4.0-10.0)
[2024-12-21 06:24] LABS: C REACTIVE PROTEIN QUANTITATIV 0.59 MG/DL (<1.0)
[2024-12-21 06:26] LABS: BLOOD UREA NITROGEN 19 MG/DL (9-23); CALCIUM LEVEL 8.7 MG/DL (8.3-10.6); CARBON DIOXIDE LEVEL 28 MMOL/L (20-31); CHLORIDE LEVEL 100 MMOL/L (98-107); CREATININE FOR GFR 0.67 MG/DL (0.70-1.30); GLOMERULAR FILTRATION RATE > 60.0 (>49); GLUCOSE, FASTING 296 MG/DL (74-106); SODIUM LEVEL 137 MMOL/L (136-145)
[2024-12-21] MEDS: ENOXAPARIN 40MG/0.4ML SYRINGE (J1650 PER 10MG) SC SCH (08:46)
[2024-12-21 10:00] VITALS: BP 130/70; TEMP 97.7; O2SAT 97
[2024-12-21 12:27] LABS: HEMOGLOBIN A1c 6.4 % (4.0-6.0)
[2024-12-21 14:00] VITALS: BP 160/73; TEMP 97.7; O2SAT 97
[2024-12-21 20:00] VITALS: BP 144/74; TEMP 97.1; O2SAT 97
[2024-12-21] MEDS ORDERED: LanTUS (INSULIN GLARGINE INJ) 1 UNITS/0.01 ML SC SCH (21:00)
[2024-12-21] MEDS: LanTUS (INSULIN GLARGINE INJ) 1 UNITS/0.01 ML SC SCH (22:17)
[2024-12-22 03:55] VITALS: BP 169/81; TEMP 97.7; O2SAT 98
[2024-12-22 05:12] LABS: BASO % 0.4 % (0.0-1.0); EOS # 0.3 10^3/uL (0.0-0.5); EOS % 3.7 % (0.0-3.0); HEMATOCRIT 30.2 % (42.0-52.0); HEMOGLOBIN 9.6 g/dl (13.5-17.5); LYMPH # 2.1 10^3/uL (1.5-5.0); LYMPH % 27.6 % (24.0-44.0); MEAN CORPUSCULAR HEMOGLOBIN 27.1 pg (27.0-33.0); MEAN CORPUSCULAR HGB CONC 31.8 g/dl (32.0-36.5); MEAN CORPUSCULAR VOLUME 85.3 fl (80.0-96.0); MONO # 0.5 10^3/uL (0.0-0.8); MONO % 6.1 % (2.0-8.0); NEUTROPHILS # 4.7 10^3/uL (1.5-8.5); NEUTROPHILS % 61.9 % (36.0-66.0); PLATELET COUNT, AUTOMATED 279 10^3/uL (150-450); RED BLOOD COUNT 3.54 10^6/uL (4.30-6.10); WHITE BLOOD COUNT 7.6 10^3/uL (4.0-10.0)
[2024-12-22 05:38] LABS: BLOOD UREA NITROGEN 17 MG/DL (9-23); C REACTIVE PROTEIN QUANTITATIV < 0.50 MG/DL (<1.0); CALCIUM LEVEL 8.6 MG/DL (8.3-10.6); CARBON DIOXIDE LEVEL 30 MMOL/L (20-31); CHLORIDE LEVEL 104 MMOL/L (98-107); CREATININE FOR GFR 0.58 MG/DL (0.70-1.30); GLOMERULAR FILTRATION RATE > 60.0 (>49); GLUCOSE, FASTING 176 MG/DL (74-106); MAGNESIUM LEVEL 1.8 MG/DL (1.8-2.4); POTASSIUM SERUM 4.7 MMOL/L (3.5-5.1); SODIUM LEVEL 140 MMOL/L (136-145)
[2024-12-22 12:09] VITALS: BP 152/78; TEMP 98.2; O2SAT 97
[2024-12-22 19:30] VITALS: BP 149/76; TEMP 98.1; O2SAT 97
[2024-12-22 21:59] VITALS: TEMP 97.4
[2024-12-22] MEDS ORDERED: PERCOCET 5MG/325MG TAB PO PRN (22:35)
[2024-12-22] MEDS: PERCOCET 5MG/325MG TAB PO PRN (23:25)
[2024-12-22] MEDS: METHOCARBAMOL 1,000 MG/10 ML VIAL IV ONE (23:42)
[2024-12-23] MEDS ORDERED: methocarbamoL 750 MG TAB PO PRN (04:00)
[2024-12-23 04:20] VITALS: BP 120/66; TEMP 97.1; O2SAT 97
[2024-12-23 06:06] VITALS: TEMP 96.9
[2024-12-23 06:40] LABS: BASO % 0.7 % (0.0-1.0); EOS # 0.4 10^3/uL (0.0-0.5); EOS % 5.9 % (0.0-3.0); HEMATOCRIT 31.2 % (42.0-52.0); LYMPH # 1.9 10^3/uL (1.5-5.0); LYMPH % 32.4 % (24.0-44.0); MEAN CORPUSCULAR HEMOGLOBIN 27.6 pg (27.0-33.0); MEAN CORPUSCULAR HGB CONC 32.1 g/dl (32.0-36.5); MEAN CORPUSCULAR VOLUME 86.2 fl (80.0-96.0); MONO # 0.4 10^3/uL (0.0-0.8); MONO % 7.5 % (2.0-8.0); NEUTROPHILS # 3.1 10^3/uL (1.5-8.5); PLATELET COUNT, AUTOMATED 303 10^3/uL (150-450); RED BLOOD COUNT 3.62 10^6/uL (4.30-6.10); WHITE BLOOD COUNT 5.9 10^3/uL (4.0-10.0)
[2024-12-23 07:14] LABS: C REACTIVE PROTEIN QUANTITATIV < 0.50 MG/DL (<1.0)
[2024-12-23 07:15] LABS: BLOOD UREA NITROGEN 19 MG/DL (9-23); CALCIUM LEVEL 8.9 MG/DL (8.3-10.6); CARBON DIOXIDE LEVEL 34 MMOL/L (20-31); CHLORIDE LEVEL 99 MMOL/L (98-107); CREATININE FOR GFR 0.73 MG/DL (0.70-1.30); GLOMERULAR FILTRATION RATE > 60.0 (>49); GLUCOSE, FASTING 163 MG/DL (74-106); MAGNESIUM LEVEL 1.9 MG/DL (1.8-2.4); POTASSIUM SERUM 4.9 MMOL/L (3.5-5.1); SODIUM LEVEL 140 MMOL/L (136-145)
[2024-12-23 09:49] VITALS: BP 160/81
[2024-12-23 12:00] VITALS: BP 160/77; TEMP 97.1; O2SAT 98
[2024-12-23] MEDS ORDERED: CEFA500C2 PO (14:05)
[2024-12-23] MEDS ORDERED: AMLO1TAB25 PO (14:05)
[2024-12-23] MEDS ORDERED: OXYC1TAB23 PO (14:05)
[2024-12-23] MEDS ORDERED: METF-877 PO (14:05)
[2024-12-23] MEDS ORDERED: PROB250C PO (14:10)
== END 2024-12-23 15:43 | disposition home or self-care (01) | DRG 313 ==
LOC: M ED 16:22 → M ED INP 23:49 → M MSPAV 12-16 12:10
PROVIDERS: ADMIT Student in an Organized Health Care Education/Training Program; ATTEND Internal Medicine
PROC: 0QBH0ZZ Excision of Left Tibia, Open Approach (ICD-10-PCS; 2024-12-20)
PROC: 0QPH04Z Removal of Internal Fixation Device from Left Tibia, Open Approach (ICD-10-PCS; principal; 2024-12-20 10:00)
DX: T84.623A Infection and inflammatory reaction due to internal fixation device of left tibia, initial encounter (principal); T81.30XA Disruption of wound, unspecified, initial encounter; E11.621 Type 2 diabetes mellitus with foot ulcer; E83.42 Hypomagnesemia; T81.42XA Infection following a procedure, deep incisional surgical site, initial encounter; L97.528 Non-pressure chronic ulcer of other part of left foot with other specified severity; I10 Essential (primary) hypertension; L03.116 Cellulitis of left lower limb; Z79.82 Long term (current) use of aspirin; Z79.84 Long term (current) use of oral hypoglycemic drugs; Z79.899 Other long term (current) drug therapy; Z88.8 Allergy status to other drugs, medicaments and biological substances; M25.472 Effusion, left ankle

== ENCOUNTER → 2025-01-13 | Outpatient (CLI) | payer OTHER, MEDICAID ==
[~2025-01-13] MED LIST changes: +AMLO1TAB25 PO; +ASPI-531 PO; +ONDA-282 SL; +PROB250C PO
== END ==
LOC: M SOG 07:51
PROVIDERS: ATTEND Physician Assistant
DX: S82.852A Displaced trimalleolar fracture of left lower leg, initial encounter for closed fracture (principal)

== ENCOUNTER → 2025-02-03 | Outpatient (REF) | payer OTHER ==
[2025-02-03 13:15] LABS: BASO % 0.3 % (0.0-1.0); EOS # 0.4 10^3/uL (0.0-0.5); EOS % 5.9 % (0.0-3.0); HEMATOCRIT 32.4 % (42.0-52.0); HEMOGLOBIN 10.8 g/dl (13.5-17.5); LYMPH # 1.3 10^3/uL (1.5-5.0); LYMPH % 22.2 % (24.0-44.0); MEAN CORPUSCULAR HEMOGLOBIN 28.3 pg (27.0-33.0); MEAN CORPUSCULAR HGB CONC 33.3 g/dl (32.0-36.5); MEAN CORPUSCULAR VOLUME 84.8 fl (80.0-96.0); MONO # 0.4 10^3/uL (0.0-0.8); MONO % 6.6 % (2.0-8.0); NEUTROPHILS # 3.8 10^3/uL (1.5-8.5); NEUTROPHILS % 64.3 % (36.0-66.0); PLATELET COUNT, AUTOMATED 311 10^3/uL (150-450); RED BLOOD COUNT 3.82 10^6/uL (4.30-6.10)
[2025-02-03 13:22] LABS: THYROID STIMULATING HORMONE 2.309 uIU/ML (0.55-4.78)
[2025-02-03 13:32] LABS: ERYTHROCYTE SEDIMENTATION RATE 40 mm/hr (0-20); PROSTATIC SPECIFIC AG MONITOR 0.39 NG/ML (< 4.00)
[2025-02-03 13:33] LABS: C REACTIVE PROTEIN QUANTITATIV 1.16 MG/DL (<1.0)
[2025-02-03 13:36] LABS: ALBUMIN 3.5 G/DL (3.2-5.2); ALKALINE PHOSPHATASE 126 U/L (40-129); ALT/SGPT 17 U/L (7.0-40); AST/SGOT 13 U/L (<34); BILIRUBIN,TOTAL 0.3 MG/DL (0.3-1.2); BLOOD UREA NITROGEN 18 MG/DL (9-23); CALCIUM LEVEL 8.6 MG/DL (8.3-10.6); CARBON DIOXIDE LEVEL 28 MMOL/L (20-31); CHLORIDE LEVEL 105 MMOL/L (98-107); CHOLESTEROL LEVEL 207 MG/DL (<200); CHOLESTEROL RISK RATIO 3.98 (<5); CREATININE FOR GFR 0.65 MG/DL (0.70-1.30); GLOMERULAR FILTRATION RATE > 90.0 (>49); GLUCOSE, FASTING 217 MG/DL (74-106); LDL CHOLESTEROL 136.2 MG/DL (<100); POTASSIUM SERUM 4.7 MMOL/L (3.5-5.1); SODIUM LEVEL 142 MMOL/L (136-145); TOTAL PROTEIN 6.8 G/DL (5.7-8.2); TRIGLYCERIDES LEVEL 94 MG/DL (<150)
== END ==
LOC: M LAB REF 12:41
PROVIDERS: ATTEND Student in an Organized Health Care Education/Training Program
DX: M86.9 Osteomyelitis, unspecified (principal); Z12.5 Encounter for screening for malignant neoplasm of prostate; I10 Essential (primary) hypertension; E11.9 Type 2 diabetes mellitus without complications

== ENCOUNTER → 2025-02-14 | Outpatient (CLI) | payer OTHER ==
[~2025-02-14] MED LIST changes: +AMLO-751 PO; -AMLO10TA PO
== END ==
LOC: M SOG 08:12
PROVIDERS: ATTEND Physician Assistant
DX: S82.852A Displaced trimalleolar fracture of left lower leg, initial encounter for closed fracture (principal); X58.XXXA Exposure to other specified factors, initial encounter; Y92.9 Unspecified place or not applicable; Y93.9 Activity, unspecified; Y99.9 Unspecified external cause status

== ENCOUNTER → 2025-02-19 | Outpatient (REF) | payer OTHER ==
[2025-02-19 15:07] LABS: BASO % 0.6 % (0.0-1.0); EOS # 0.2 10^3/uL (0.0-0.5); EOS % 3.3 % (0.0-3.0); HEMATOCRIT 37.3 % (42.0-52.0); HEMOGLOBIN 12.4 g/dl (13.5-17.5); LYMPH # 1.3 10^3/uL (1.5-5.0); LYMPH % 18.2 % (24.0-44.0); MEAN CORPUSCULAR HEMOGLOBIN 28.7 pg (27.0-33.0); MEAN CORPUSCULAR HGB CONC 33.2 g/dl (32.0-36.5); MEAN CORPUSCULAR VOLUME 86.3 fl (80.0-96.0); MONO # 0.4 10^3/uL (0.0-0.8); MONO % 5.3 % (2.0-8.0); NEUTROPHILS % 72.2 % (36.0-66.0); PLATELET COUNT, AUTOMATED 322 10^3/uL (150-450); RED BLOOD COUNT 4.32 10^6/uL (4.30-6.10)
[2025-02-19 15:13] LABS: ERYTHROCYTE SEDIMENTATION RATE 38 mm/hr (0-20)
[2025-02-19 15:48] LABS: PROCALCITONIN 0.05 ng/ml
[2025-02-19 15:49] LABS: ALBUMIN 3.9 G/DL (3.2-5.2); ALKALINE PHOSPHATASE 137 U/L (40-129); ALT/SGPT 20 U/L (7.0-40); AST/SGOT 13 U/L (<34); BILIRUBIN,TOTAL 0.4 MG/DL (0.3-1.2); BLOOD UREA NITROGEN 16 MG/DL (9-23); CALCIUM LEVEL 9.8 MG/DL (8.3-10.6); CARBON DIOXIDE LEVEL 30 MMOL/L (20-31); CHLORIDE LEVEL 100 MMOL/L (98-107); CREATININE FOR GFR 0.78 MG/DL (0.70-1.30); GLOMERULAR FILTRATION RATE > 90.0 (>49); GLUCOSE, FASTING 222 MG/DL (74-106); POTASSIUM SERUM 5.6 MMOL/L (3.5-5.1); SODIUM LEVEL 139 MMOL/L (136-145); TOTAL PROTEIN 7.3 G/DL (5.7-8.2)
== END ==
LOC: M LAB REF 14:08
PROVIDERS: ATTEND Student in an Organized Health Care Education/Training Program
DX: R53.83 Other fatigue (principal)

== ENCOUNTER 2025-04-30 04:16 | Emergency (ER) | payer OTHER ==
[~2025-04-30] VITALS: Ht 175.3 cm; Wt 68.2 kg
[2025-04-30 07:01] LABS: BASO # 0.0 10^3/uL (0.0-0.2); BASO % 0.4 % (0.0-1.0); EOS # 0.1 10^3/uL (0.0-0.5); EOS % 1.2 % (0.0-3.0); LYMPH # 0.9 10^3/uL (1.5-5.0); LYMPH % 12.3 % (24.0-44.0); MONO # 0.5 10^3/uL (0.0-0.8); MONO % 6.5 % (2.0-8.0); NEUTROPHILS # 5.7 10^3/uL (1.5-8.5); NEUTROPHILS % 79.2 % (36.0-66.0); PLATELET COUNT, AUTOMATED 428 10^3/uL (150-450)
[2025-04-30 07:26] LABS: CALCIUM LEVEL 8.7 MG/DL (8.3-10.6); CARBON DIOXIDE LEVEL 28 MMOL/L (20-31); CHLORIDE LEVEL 100 MMOL/L (98-107); CK-MB VALUE MASS < 1.0 NG/ML (<3.6); CPK CREATINE PHOSPHOKINASE 26 U/L (46-171); CREATININE FOR GFR 0.78 MG/DL (0.70-1.30); GLOMERULAR FILTRATION RATE > 90.0 (>49); POTASSIUM SERUM 4.2 MMOL/L (3.5-5.1); SODIUM LEVEL 141 MMOL/L (136-145)
[2025-04-30] MEDS ORDERED: AMLO2.5T3 PO (08:15)
[2025-04-30] MEDS ORDERED: ATOR1TAB21 PO (08:15)
[2025-04-30] MEDS ORDERED: LOSA100T46 PO (08:15)
[2025-04-30] MEDS ORDERED: JARD1TAB PO (08:15)
[2025-04-30] MEDS ORDERED: OXYC-517 PO (08:15)
[2025-04-30] MEDS ORDERED: SALI0.652 NARES (09:48)
[2025-04-30] MEDS ORDERED: METF10004 PO (09:48)
[2025-04-30] MEDS ORDERED: HOME MED LIST COMPLETE! XX SCH (09:50)
[2025-04-30] MEDS: NS (Normal Saline) 0.9% 1,000 ML IV ONE (11:43)
[2025-04-30 14:15] VITALS: BP 151/72; O2SAT 97
[2025-04-30 14:28] VITALS: TEMP 96.9
== END 2025-04-30 14:57 | disposition home or self-care (01) ==
LOC: M ED 04:16
DX: E86.0 Dehydration (principal); E11.9 Type 2 diabetes mellitus without complications; I10 Essential (primary) hypertension; Z79.82 Long term (current) use of aspirin